=== PATIENT | female | born 1975 | race Caucasian/White ===

== ENCOUNTER 2024-03-04 14:32 | Inpatient (IN) | payer MEDICARE, OTHER ==
--- NOTE | 2024-03-04 15:10 | ED ---
General Adult HPI - General Chief complaint: Chest Pain Stated complaint: Chest pain, pain in L arm Time Seen by Provider: 03/04/24 14:55 Source: patient, RN notes reviewed, old records reviewed Mode of arrival: ambulatory Limitations: no limitations - History of Present Illness Initial comments: This is a 48-year-old female who presents to the emergency department with a past medical history significant for diabetes hypertension high cholesterol smok ing and a strong family history of heart disease. Patient states she has been having intermittent problems with her left shoulder but now its become constant and her left shoulder and arm hurt a lot particularly with movement or palpation. Patient states this morning she started having chest pressure and that continues now. Patient denies any shortness of breath or difficulty breathing. Patient [place] any abdominal pain patient has any nausea vomiting. Patient is any diaphoretic episode. Patient has any recent fever chills or cough. - Related Data Allergies Allergy/AdvReac Type Severity Reaction Status Date / Time codeine Allergy Rash/Hives Verified 03/04/24 14:43 nitrofurantoin Allergy Rash/Hives Verified 03/04/24 14:43 [From Macrobid] Penicillins Allergy Rash/Hives Verified 03/04/24 14:43 vancomycin Allergy Rash/Hives Verified 03/04/24 14:43 Review of Systems ROS Statement: Those systems with pertinent positive or pertinent negative responses have been documented in the HPI. ROS Other: All systems not noted in ROS Statement are negative. Past Medical History Past Medical History: Diabetes Mellitus, GERD/Reflux Additional Past Medical History / Comment(s): Unknown Autoimmune disease, chronic back pain, History of Any Multi-Drug Resistant Organisms: None Reported Past Surgical History: Cholecystectomy, Hysterectomy Past Psychological History: No Psychological Hx Reported Smoking Status: Current every day smoker Past Alcohol Use History: None Reported Past Drug Use History: None Reported General Exam - General Exam Comments Initial Comments: GENERAL: Patient is well-developed and well-nourished. Patient is nontoxic and well- hydrated and is in mild distress. ENT: Neck is soft and supple. No significant lymphadenopathy is noted. Oropharynx is clear. Moist mucous membranes. Neck has full range of motion without eliciting any pain. EYES: The sclera were anicteric and conjunctiva were pink and moist. Extraocular movements were intact and pupils were equal round and reactive to light. Eyelids were unremarkable. PULMONARY: Unlabored respirations. Good breath sounds bilaterally. No audible rales rhonchi or wheezing was noted. CARDIOVASCULAR: There is a regular rate and rhythm without any murmurs gallops or rubs. ABDOMEN: Soft and nontender with normal bowel sounds. SKIN: Skin is clear with no lesions or rashes and otherwise unremarkable. NEUROLOGIC: Patient is alert and oriented x3. Cranial nerves II through XII are grossly int act. Motor and sensory are also intact. Normal speech, volume and content. Symmetrical smile. MUSCULOSKELETAL: Normal extremities with adequate strength and full range of motion. LYMPHATICS: No significant lymphadenopathy is noted PSYCHIATRIC: Normal psychiatric evaluation. Limitations: no limitations Course Vital Signs 03/04/24 03/04/24 14:40 15:05 Temperature 98.5 F Pulse Rate 82 78 Respiratory 18 18 Rate Blood Pressure 148/83 170/101 O2 Sat by Pulse 96 98 Oximetry Medical Decision Making - Medical Decision Making EKG shows sinus rhythm at 78 bpm MS interval 175 QRS is 90 QT interval 366 QTc is 399. Patient's EKG shows no ST segment elevation or depression. Was pt. sent in by a medical professional or institution (, PA, SALES AND SERVICE TECHNICIAN, urgent care, hospital, or senior care...) When possible be specific @ -No Did you speak to anyone other than the patient for history (EMS, parent, family, police, friend...)? What history was obtained from this source @ -No Did you review nursing and triage notes (agree or disagree)? Why? @ -I reviewed and agree with nursing and triage notes Were old charts reviewed (outside hosp., previous admission, EMS record, old EKG, old radiological studies, urgent care reports/EKG's, senior care records)? Report findings @ -No old charts were reviewed Differential Diagnosis (chest pain, altered mental status, abdominal pain women, abdominal pain men, vaginal bleeding, weakness, fever, dyspnea, syncope, headache, dizziness, GI bleed, back pain, seizure, CVA, palpatations, mental health, musculoskeletal)? @ -Differential Chest Pain: Stable Angina, Unstable Angina, STEMI, NSTEMI Aortic Dissection, Pneumothorax, Musculoskeletal, Esophageal Spasm GERD, Cholecystitis, Pancreatitis, Zoster, this is not meant to be an all-inclusive list. EKG interpreted by me (3pts min.). @ -As above X-rays interpreted by me (1pt min.). @ -Chest x-ray shows no acute [place] CT interpreted by me (1pt min.). @ -None done U/S interpreted by me (1pt. min.). @ -None done What testing was considered but not performed or refused? (CT, X-rays, U/S, labs)? Why? @ -None What meds were considered but not given or refused? Why? @ -None Did you discuss the management of the patient with other professionals (iggy [place] i.eLatha Feliciano, PA, SALES AND SERVICE TECHNICIAN, lab, RT, psych nurse, social work therapist, expedition supervisor, teacher, ski patrol officer, caser shoe parts)? Give summary @ -I spoke with Dr. San he agreed to admit the patient admit the patient and consult to cardiology Was smoking cessation discussed for >3mins.? @ -No Was critical care preformed (if so, how long)? @ -No Were there social determinants of health that impacted care today? How? (Homelessness, low income, unemployed, alcoholism, drug addiction, transportation, low edu. Level, literacy, decrease access to med. care, alf, rehab)? @ -No Was there de-escalation of care discussed even if they declined (Discuss DNR or withdrawal of care, Hospice)? DNR status @ -No What co-morbidities impacted this encounter? (DM, HTN, Smoking, COPD, CAD, Cancer, CVA, ARF, Chemo, Hep., AIDS, mental health diagnosis, sleep apnea, morbid obesity)? @ -None Was patient admitted / discharged? Hospital course, mention meds given and route, prescriptions, significant lab abnormalities, going to OR and other pertinent info. @ -Patient was given Nitropaste and aspirin in the emergency department. Patient's lab work came back normal however she continued experience some chest discomfort so patient will be admitted. Patient also had a GI cocktail early because she thought she had some reflux Undiagnosed new problem with uncertain prognosis? @ -No Drug Therapy requiring intensive monitoring for toxicity (Heparin, Nitro, Insulin, Cardizem)? @ -No Were any procedures done? @ -No Diagnosis/symptom? @ -Chest pain Acute, or Chronic, or Acute on Chronic? @ -Acute Uncomplicated (without systemic symptoms) or Complicated (systemic symptoms)? @ -Complicated Side effects of treatment? @ -No Exacerbation, Progression, or Severe Exacerbation? @ -No Poses a threat to life or bodily function? How? (Chest pain, USA, CA, pneumonia, PE, COPD, DKA, ARF, appy, cholecystitis, CVA, Diverticulitis, Homicidal, Suicidal, threat to staff... and all critical care pts) @ -Yes this could lead to an CA and endorgan dysfunction - Lab Data Result diagrams: 03/04/24 15:04 03/04/24 15:04 Lab Results 03/04/24 03/04/24 03/04/24 Range/Units 15:04 15:04 15:04 WBC 13.4 H (3.8-10.6) k/uL RBC 5.55 H (3.80-5.40) m/uL Hgb 16.3 H (11.4-16.0) gm/dL Hct 50.5 H (34.0-46.0) % MCV 91.1 (80.0-100.0) fL MCH 29.4 (25.0-35.0) pg MCHC 32.2 (31.0-37.0) g/dL RDW 13.7 (11.5-15.5) % Plt Count 278 (150-450) k/uL MPV 9.2 Neutrophils % 62 % Lymphocytes % 29 % Monocytes % 4 % Eosinophils % 3 % Basophils % 1 % Neutrophils # 8.3 H (1.3-7.7) k/uL Lymphocytes # 3.9 (1.0-4.8) k/uL Monocytes # 0.5 (0-1.0) k/uL Eosinophils # 0.3 (0-0.7) k/uL Basophils # 0.2 (0-0.2) k/uL PT 10.1 (10.0-12.5) sec INR 0.9 (<1.2) APTT 24.5 (22.0-30.0) sec Sodium 136 L (137-145) mmol/L Potassium 4.2 (3.5-5.1) mmol/L Chloride 103 (98-107) mmol/L Carbon Dioxide 28 (22-30) mmol/L Anion Gap 5 mmol/L BUN 14 (7-17) mg/dL Creatinine 0.58 (0.52-1.04) mg/dL Est GFR (CKD-EPI)AfAm >90 (>60 ml/min/1.73 sqM) Est GFR (CKD-EPI)NonAf >90 (>60 ml/min/1.73 sqM) Glucose 152 H (74-99) mg/dL Calcium 9.5 (8.4-10.2) mg/dL Magnesium 2.0 (1.6-2.3) mg/dL Total Bilirubin 0.6 (0.2-1.3) mg/dL AST 33 (14-36) U/L ALT 25 (4-34) U/L Alkaline Phosphatase 160 H (38-126) U/L Troponin I (0.000-0.034) ng/mL Total Protein 7.1 (6.3-8.2) g/dL Albumin 4.5 (3.5-5.0) g/dL 03/04/24 Range/Units 15:04 WBC (3.8-10.6) k/uL RBC (3.80-5.40) m/uL Hgb (11.4-16.0) gm/dL Hct (34.0-46.0) % MCV (80.0-100.0) fL MCH (25.0-35.0) pg MCHC (31.0-37.0) g/dL RDW (11.5-15.5) % Plt Count (150-450) k/uL MPV Neutrophils % % Lymphocytes % % Monocytes % % Eosinophils % % Basophils % % Neutrophils # (1.3-7.7) k/uL Lymphocytes # (1.0-4.8) k/uL Monocytes # (0-1.0) k/uL Eosinophils # (0-0.7) k/uL Basophils # (0-0.2) k/uL PT (10.0-12.5) sec INR (<1.2) APTT (22.0-30.0) sec Sodium (137-145) mmol/L Potassium (3.5-5.1) mmol/L Chloride (98-107) mmol/L Carbon Dioxide (22-30) mmol/L Anion Gap mmol/L BUN (7-17) mg/dL Creatinine (0.52-1.04) mg/dL Est GFR (CKD-EPI)AfAm (>60 ml/min/1.73 sqM) Est GFR (CKD-EPI)NonAf (>60 ml/min/1.73 sqM) Glucose (74-99) mg/dL Calcium (8.4-10.2) mg/dL Magnesium (1.6-2.3) mg/dL Total Bilirubin (0.2-1.3) mg/dL AST (14-36) U/L ALT (4-34) U/L Alkaline Phosphatase (38-126) U/L Troponin I <0.012 (0.000-0.034) ng/mL Total Protein (6.3-8.2) g/dL Albumin (3.5-5.0) g/dL Disposition Clinical Impression: Chest pain Disposition: ADMITTED IP TO THIS HOSP Referrals: Nonstaff,Physician [Primary Care Provider] - 1-2 days Time of Disposition: 17:22
[2024-03-04] MEDS: MAG HYDROX/AL HYDROX/SIMETH 30 ML, HYOSCYAMINE ELIXIR 10 ML, LIDOCAINE VISCOUS 2% 10 ML PO STA (15:18)
[2024-03-04 15:21] LABS: Basophils # (A) 0.2 k/uL (0-0.2); Basophils % (A) 1 %; Eosinophils # (A) 0.3 k/uL (0-0.7); Eosinophils % (A) 3 %; HCT 50.5 % (34.0-46.0); HGB 16.3 gm/dL (11.4-16.0); Lymphocytes # (A) 3.9 k/uL (1.0-4.8); Lymphocytes % (A) 29 %; MCH 29.4 pg (25.0-35.0); MCHC 32.2 g/dL (31.0-37.0); MCV 91.1 fL (80.0-100.0); Mean Platelet Volume 9.2; Monocytes # (A) 0.5 k/uL (0-1.0); Monocytes % (A) 4 %; Neutrophils # (A) 8.3 k/uL (1.3-7.7); Neutrophils % (A) 62 %; Platelet Count 278 k/uL (150-450); RBC 5.55 m/uL (3.80-5.40); RDW 13.7 % (11.5-15.5); WBC 13.4 k/uL (3.8-10.6)
[2024-03-04 15:29] LABS: ALT 25 U/L (4-34); AST 33 U/L (14-36); African American GFR (CKD) >90 (>60 ml/min/1.73 sqM); Albumin 4.5 g/dL (3.5-5.0); Alkaline Phosphatase 160 U/L (38-126); Anion Gap 5 mmol/L; Blood Urea Nitrogen 14 mg/dL (7-17); Calcium 9.5 mg/dL (8.4-10.2); Carbon Dioxide 28 mmol/L (22-30); Chloride 103 mmol/L (98-107); Glucose 152 mg/dL (74-99); Non-African American GFR(CKD) >90 (>60 ml/min/1.73 sqM); Potassium 4.2 mmol/L (3.5-5.1); Sodium 136 mmol/L (137-145); Total Bilirubin 0.6 mg/dL (0.2-1.3); Total Protein 7.1 g/dL (6.3-8.2)
[2024-03-04 15:31] LABS: INR 0.9 (<1.2); Partial Thromboplastin Time 24.5 sec (22.0-30.0); Prothrombin Time 10.1 sec (10.0-12.5)
[2024-03-04] MEDS: KETOROLAC 15 MG/ML 1 ML VIAL IVP STA (17:09)
[2024-03-04] MEDS ORDERED: NITROGLYCERIN SL TABS 0.4 MG TAB SUBLINGUAL PRN (17:37)
[2024-03-04] MEDS: NITROGLYCERIN OINT 1 INCH/GM PACKET TOPICAL SCH (19:02)
[2024-03-04] MEDS: metFORMIN 500 MG TAB PO SCH (21:33)
[2024-03-04] MEDS: HYDROcodone/APAP 5-325MG 1 EACH TAB PO PRN (21:33)
[2024-03-04] MEDS: ATORVASTATIN 10 MG TAB PO SCH (21:34)
[2024-03-04] MEDS: PANTOPRAZOLE 40 MG TABLET PO SCH (21:34)
[2024-03-05] MEDS ORDERED: MORPHINE SULFATE 2 MG/ML SYRINGE IVP PRN (00:16)
[2024-03-05] MEDS: MORPHINE SULFATE 2 MG/ML SYRINGE IVP ONE (00:36)
[2024-03-05] MEDS: PANTOPRAZOLE 40 MG/10 ML VIAL IVP SCH (05:25)
[2024-03-05] MEDS: MORPHINE SULFATE 2 MG/ML SYRINGE IVP STA (05:26)
[2024-03-05 05:36] VITALS: BP 129/76; PULSE 68; RESP 24; TEMP 97.6
[2024-03-05 06:30] LABS: Glucose,Whole Blood 125 mg/dL (70-110)
--- NOTE | 2024-03-05 07:44 | XR ---
EXAMINATION TYPE: XR chest 2V DATE OF EXAM: 03/04/2024 COMPARISON: NONE HISTORY: Chest pain TECHNIQUE: Frontal and lateral views of the chest are obtained. FINDINGS: Increased density right medial lung base could reflect developing infiltrate. No evidence for pneumothorax. No pleural effusion. The cardiac silhouette size is within normal limits. The osseous structures are grossly intact. IMPRESSION: 1. Increased density right medial lung base could reflect developing infiltrate.
--- NOTE | 2024-03-05 07:52 | XR ---
EXAMINATION TYPE: XR shoulder complete LT DATE OF EXAM: 03/05/2024 CLINICAL HISTORY: pain COMPARISON: NONE TECHNIQUE: Three views of the left shoulder are obtained. FINDINGS: There is no acute fracture/dislocation evident. The acromioclavicular and glenohumeral clarice int spaces appear within normal limits. The visualized ribs are intact and unremarkable. IMPRESSION: 1. There is no acute fracture or dislocation. ICD 10 NO FRACTURE, INITIAL EVALUATION
[2024-03-05] MEDS ORDERED: DOBUTamine DRIP for NUC MED 500 MG in DEXTROSE/WATER 1 250ML.BAG IV PRN (08:11)
[2024-03-05] MEDS: LOSARTAN 50 MG TAB PO SCH (09:27)
[2024-03-05] MEDS: ASPIRIN 325 MG TAB PO SCH (09:27)
[2024-03-05] MEDS: CHOLECALCIFEROL 125 MCG (5000 IU) TABLET PO SCH (09:27)
[2024-03-05 10:37] LABS: Chol/HDL Ratio 4.25 Ratio; LDL Cholesterol,Calculated 46.8 mg/dL (0.0-131.0)
--- NOTE | 2024-03-05 10:46 | P.CRDCN ---
History of Present Illness Consult date: 03/05/24 Consult reason: chest pain History of present illness: This is a 48-year-old female with no previous cardiac history, does not follow with a deposit clerk and lives in [place]. She has a past medical history of diabetes mellitus type 2, hyperlipidemia, gastroesophageal reflux disease. We have been asked to evaluate the patient for chest pain. Patient complains of severe left shoulder pain and left upper anterior chest wall pain that has been going on for couple weeks on and off initially and now it has been constant for the past 2 days. She has been given Nitropaste which did not help. She also complains of epigastric tenderness that she has had for many years. Patient presented with blood pressure 186/97, heart rates have been controlled in the 70s. Patient is status post 2 doses of IV morphine, Protonix, Toradol and GI cocktail. She is seen today in the emergency center waiting for bed on the observation unit. EKG: Sinus rhythm with no acute ST-T wave changes x 2 Chest x-ray: Increased density in the right middle lung base could reflect developing infiltrate Left shoulder x-ray: No acute fracture or dislocation. Laboratory studies: WBC 13.4, hemoglobin 16.3. Sodium 136, potassium 4.2, creatinine 0.58. Troponin negative x 3. Triglycerides 263, cholesterol 130, LDL 46, HDL 30. Home cardiac medications: Atorvastatin 10 mg at bedtime, metformin 1000 mg twice daily. Review Of Systems: At the time of my exam: CONSTITUTIONAL: Denies fever or chills. HEENT: Denies blurred vision, vision changes, or eye pain. Denies hemoptysis CARDIOVASCULAR: Denies chest pain. Denies orthopnea. Denies PND. Denies palpitations RESPIRATORY: Denies shortness of breath. GASTROINTESTINAL: Denies abdominal pain. Denies nausea or vomiting. HEMATOLOGIC: Denies bleeding disorders. GENITOURINARY: Denies any blood in urine. SKIN: Denies puritis. Denies rash. Physical examination: Gen: This is a 48-year-old female in significant pain to the left shoulder. VS: reviewed, 129/76, heart rate 68, pulse ox 94% on room air, afebrile. HEENT: Head is atraumatic, normocephalic. Pupils equal, round. Sclerae is anicteric. NECK: Supple. No JVD. LUNGS: Clear to auscultation. No wheezes or rhonchi. No intercostal retractions. HEART: Regular rate and rhythm. No murmur. EXTREMITIES: No pedal edema. No calf tenderness. NEUROLOGICAL: Patient is awake, alert and oriented x3. Assessment: Left shoulder pain Left upper anterior chest wall pain, acute coronary syndrome ruled out with negative troponins and normal EKG Diabetes mellitus type 2 Hyperlipidemia Gastroesophageal reflux disease Plan: Resume patient's home cardiac medications with the following changes Increase atorvastatin to 20 mg at bedtime Add losartan 50 mg daily Discontinue Nitropaste Obtain dobutamine stress test Obtain 2-D echocardiogram and Doppler study to assess cardiac structure and function If stress test and echocardiogram are unremarkable, patient is cleared for discharge home. Thank you kindly for this consultation. Nurse practitioner note has been reviewed, I agree with documented findings and plan of care. Patient was seen and examined. Past Medical History Past Medical History: Diabetes Mellitus, GERD/Reflux Additional Past Medical History / Comment(s): Unknown Autoimmune disease, chronic back pain, History of Any Multi-Drug Resistant Organisms: None Reported Past Surgical History: Cholecystectomy, Hysterectomy Past Psychological History: No Psychological Hx Reported Smoking Status: Current every day smoker Past Alcohol Use History: None Reported Past Drug Use History: None Reported Medications and Allergies Home Medications Medication Instructions Recorded Confirmed Type Atorvastatin [Lipitor] 10 mg PO HS 03/04/24 03/04/24 History Cholecalciferol (Vitamin D3) 125 mcg PO DAILY 03/04/24 03/04/24 History [Vitamin D3 (125 MCG = 5,000 IU)] Omeprazole 20 mg PO BID 03/04/24 03/04/24 History metFORMIN HCL 1,000 mg PO BID 03/04/24 03/04/24 History Allergies Allergy/AdvReac Type Severity Reaction Status Date / Time codeine Allergy Rash/Hives Verified 03/04/24 17:17 nitrofurantoin Allergy Rash/Hives Verified 03/04/24 17:17 [From Macrobid] Penicillins Allergy Rash/Hives Verified 03/04/24 17:17 vancomycin Allergy Rash/Hives Verified 03/04/24 17:17 Physical Exam Vitals: Vital Signs Temp Pulse Pulse Resp BP BP Pulse Ox 03/05/24 05:35 97.6 F 68 24 129/76 94 L 03/05/24 00:28 98.0 F 67 20 152/81 95 03/04/24 21:37 67 20 167/84 98 03/04/24 19:05 98.2 F 71 17 173/100 96 03/04/24 17:11 70 18 186/97 95 03/04/24 15:05 78 18 170/101 98 03/04/24 14:40 98.5 F 82 18 148/83 96 Intake and Output 03/04/24 03/05/24 03/05/24 22:59 06:59 14:59 Other: # Voids 3 # Bowel Movements 0 Results 03/04/24 15:04 03/04/24 15:04 Cardiac Enzymes 03/04/24 03/04/24 03/04/24 Range/Units 15:04 15:04 17:57 AST 33 (14-36) U/L Troponin I <0.012 <0.012 (0.000-0.034) ng/mL 03/04/24 Range/Units 20:34 AST (14-36) U/L Troponin I <0.012 (0.000-0.034) ng/mL Coagulation 03/04/24 Range/Units 15:04 PT 10.1 (10.0-12.5) sec APTT 24.5 (22.0-30.0) sec CBC 03/04/24 Range/Units 15:04 WBC 13.4 H (3.8-10.6) k/uL RBC 5.55 H (3.80-5.40) m/uL Hgb 16.3 H (11.4-16.0) gm/dL Hct 50.5 H (34.0-46.0) % Plt Count 278 (150-450) k/uL Comprehensive Metabolic Panel 03/04/24 Range/Units 15:04 Sodium 136 L (137-145) mmol/L Potassium 4.2 (3.5-5.1) mmol/L Chloride 103 (98-107) mmol/L Carbon Dioxide 28 (22-30) mmol/L BUN 14 (7-17) mg/dL Creatinine 0.58 (0.52-1.04) mg/dL Glucose 152 H (74-99) mg/dL Calcium 9.5 (8.4-10.2) mg/dL AST 33 (14-36) U/L ALT 25 (4-34) U/L Alkaline Phosphatase 160 H (38-126) U/L Total Protein 7.1 (6.3-8.2) g/dL Albumin 4.5 (3.5-5.0) g/dL Current Medications Generic Name Dose Route Start Last Admin Trade Name Freq PRN Reason Stop Dose Admin Hydrocodone Bitart/Acetaminophen 1 each 03/04/24 22:00 03/05/24 02:55 Hydrocodone/Apap 5-325mg 1 Each Tab PO 1 each Q6HR PRN Administration Pain Aspirin 325 mg 03/05/24 09:00 Aspirin 325 Mg Tab PO DAILY TERESA Atorvastatin Calcium 10 mg 03/04/24 22:00 03/04/24 21:34 Atorvastatin 10 Mg Tab PO 10 mg HS TERESA Administration Cholecalciferol 125 mcg 03/05/24 09:00 Cholecalciferol 125 Mcg (5000 Iu) Tablet PO DAILY [facility] Metformin HCl 1,000 mg 03/04/24 22:00 03/04/24 21:33 Metformin 500 Mg Tab PO 1,000 mg BID-W/MEALS TERESA Administration Nitroglycerin 0.4 mg 03/04/24 17:37 Nitroglycerin Sl Tabs 0.4 Mg Tab SUBLINGUAL Q5M PRN Chest Pain Nitroglycerin 1 inch 03/04/24 18:00 03/05/24 05:32 Nitroglycerin Oint 1 Inch/Gm Packet TOPICAL 1 inch Q6HR TERESA Administration Pantoprazole Sodium 40 mg 03/05/24 09:00 03/05/24 05:25 Pantoprazole 40 Mg/10 Ml Vial IVP 40 mg BID ETRESA Administration Intake and Output 03/04/24 03/05/24 03/05/24 22:59 06:59 14:59 Other: # Voids 3 # Bowel Movements 0 03/04/24 15:04 03/04/24 15:04
[2024-03-05] MEDS: MORPHINE SULFATE 2 MG/ML SYRINGE IVP PRN (11:09)
[2024-03-05 11:11] LABS: Basophils # (A) 0.1 k/uL (0-0.2); Basophils % (A) 1 %; Eosinophils # (A) 0.3 k/uL (0-0.7); Eosinophils % (A) 2 %; HCT 48.8 % (34.0-46.0); HGB 15.1 gm/dL (11.4-16.0); Lymphocytes % (A) 36 %; MCH 29.1 pg (25.0-35.0); MCV 93.8 fL (80.0-100.0); Mean Platelet Volume 10.3; Monocytes # (A) 0.6 k/uL (0-1.0); Monocytes % (A) 4 %; Neutrophils # (A) 7.6 k/uL (1.3-7.7); Neutrophils % (A) 55 %; Platelet Count 269 k/uL (150-450); RDW 13.8 % (11.5-15.5); WBC 13.7 k/uL (3.8-10.6)
[2024-03-05 11:12] LABS: African American GFR (CKD) >90 (>60 ml/min/1.73 sqM); Anion Gap 4 mmol/L; Blood Urea Nitrogen 16 mg/dL (7-17); Calcium 9.2 mg/dL (8.4-10.2); Carbon Dioxide 26 mmol/L (22-30); Chloride 106 mmol/L (98-107); Glucose 124 mg/dL (74-99); Non-African American GFR(CKD) >90 (>60 ml/min/1.73 sqM); Potassium 4.4 mmol/L (3.5-5.1); Sodium 136 mmol/L (137-145)
[2024-03-05] MEDS: KETOROLAC 15 MG/ML 1 ML VIAL IVP PRN (12:16)
--- NOTE | 2024-03-05 13:07 | CA ---
Transthoracic Echo Report Name: Elizabeth Noonan Age: 48 Gender: F : 1975 Exam Date: 03/05/2024 10:05 Exam Location: [facility] Ht (in): 66 Wt (lb): 250 Ordering Physician: Ashley Valencia Attending/Referring Phys: Senior Quality Engineer Radha Robert RDCS Procedure CPT: Indications: LVF Cardiac Hx: Technical Quality: Fair Contrast 1: Total Dose (mL): Contrast 2: Total Dose (mL): MEASUREMENTS (Male / Female) Normal Values 2D ECHO LV Diastolic Diameter PLAX 4.6 cm 4.2 - 5.9 / 3.9 - 5.3 cm LV Systolic Diameter PLAX 2.4 cm IVS Diastolic Thickness 1.7 cm 0.6 - 1.0 / 0.6 - 0.9 cm LVPW Diastolic Thickness 1.4 cm 0.6 - 1.0 / 0.6 - 0.9 cm LV Relative Wall Thickness 0.7 LA Volume 47.1 cm??? 18 - 58 / 22 - 52 cm??? LA Volume Index 20.0 cm???/m??? 16 - 28 cm???/m??? M-MODE Aortic Root Diameter MM 2.8 cm LA Systolic Diameter MM 4.5 cm LA Ao Ratio MM 1.6 DOPPLER AV Peak Velocity 131.1 cm/s AV Peak Gradient 6.9 mmHg AV Mean Gradient 3.7 mmHg AV Velocity Time Integral 30.2 cm LVOT Peak Velocity 107.0 cm/s LVOT Peak Gradient 4.6 mmHg LVOT Velocity Time Integral 25.7 cm Mitral E Point Velocity 85.7 cm/s Mitral A Point Velocity 108.4 cm/s Mitral E to A Ratio 0.8 MV Deceleration Time 301.1 ms TR Peak Velocity 234.8 cm/s TR Peak Gradient 22.0 mmHg FINDINGS Left Ventricle Moderately increased left ventricular wall thickness. Left ventricular cavity size normal. Normal left ventricular systolic function with no obvious regional wall motion abnormalities. Left ventricular ejection fraction is estimated at 55-60 %. Grade 1 diastolic dysfunction. Right Ventricle Normal right ventricular size and function. Right ventricular systolic pressure within normal limits. Right Atrium Normal right atrial size. Left Atrium Normal left atrial size. Mitral Valve Structurally normal mitral valve. Mild mitral annular calcification. No mitral stenosis. Trace mitral regurgitation. Aortic Valve Trileaflet aortic valve. No aortic valve stenosis or regurgitation. Tricuspid Valve Structurally normal tricuspid valve. Mild tricuspid regurgitation. Pulmonic Valve Structurally normal pulmonic valve. Pericardium No pericardial effusion. Aorta Normal size aortic root and proximal ascending aorta. CONCLUSIONS Preserved LV systolic function Previewed by: Dr. Karel Martinez MD (Electronically Signed) Final Date: 05 March 2024 13:06
--- NOTE | 2024-03-05 13:55 | P.HPIM ---
History of Present Illness H&P Date: 03/05/24 Chief Complaint: Left shoulder pain Patient is a 48-year-old female with a known history of diabetes type 2 [id number], GERD, history of autoimmune disease and chronic low back pain and currently everyday smoker presents to ER with complaints of left shoulder pain. Patient states that she has been having left shoulder pain for the past 1 week and worsened in the last couple days. Pain has been constant and particularly gets worse with movement and on palpation. Patient also started having chest pressure yesterday morning. Denies any complaints of difficulty in breathing. No complaints of nausea or vomiting or diaphoresis. Denies any recent strenuous work. Patient states that she did have right shoulder pain prior to developing left shoulder pain. Right shoulder pain is completely resolved now. Denies any fever or chills. No cough or sputum production. No nausea vomiting abdominal pain or diarrhea. EKG showed sinus rhythm. Chest x-ray showed increased density in the right medial lung base could reflect developing infiltrate. Left shoulder x-ray showed no acute fracture or dislocation. Laboratory data showed WBC 13.4 hemoglobin 16.3 and platelets 278 Sodium 136 potassium 4.2 chloride 103 bicarb is 28 BUN 14 and creatinine 0.58 and blood sugar 152 AST 33 ALT 25 and alk phos 160, troponin x 3 negative Triglycerides 263 cholesterol 130 and LDL 46. Review of Systems Constitutional: Patient denies any fever or chills . No generalized weakness or weight loss. Abdomen: Patient denied nausea vomiting and diarrhea and abdominal pain. Cardiovascular: Patient denies any chest pain or short of breath no palpi tations. Respiratory: patient denied any cough or sputum production. No shortness of breath Neurologic: Patient denied any numbness or tingling. no headache. Musculoskeletal: Patient denies any complaints of joint swelling or deformity. Left shoulder pain. Skin: Negative Psychiatric: Negative Endocrine: No heat or cold intolerance. No recent weight gain. Genitourinary: No dysuria or hematuria. All other 14 point ROS negative except the above Past Medical History Past Medical History: Diabetes Mellitus, GERD/Reflux Additional Past Medical History / Comment(s): Unknown Autoimmune disease, chronic back pain, History of Any Multi-Drug Resistant Organisms: None Reported Past Surgical History: Cholecystectomy, Hysterectomy Past Psychological History: No Psychological Hx Reported Smoking Status: Current every day smoker Past Alcohol Use History: None Reported Past Drug Use History: None Reported Medications and Allergies Home Medications Medication Instructions Recorded Confirmed Type Atorvastatin [Lipitor] 10 mg PO HS 03/04/24 03/04/24 History Cholecalciferol (Vitamin D3) 125 mcg PO DAILY 03/04/24 03/04/24 History [Vitamin D3 (125 MCG = 5,000 IU)] Omeprazole 20 mg PO BID 03/04/24 03/04/24 History metFORMIN HCL 1,000 mg PO BID 03/04/24 03/04/24 History Allergies Allergy/AdvReac Type Severity Reaction Status Date / Time codeine Allergy Rash/Hives Verified 03/04/24 17:17 nitrofurantoin Allergy Rash/Hives Verified 03/04/24 17:17 [From Macrobid] Penicillins Allergy Rash/Hives Verified 03/04/24 17:17 vancomycin Allergy Rash/Hives Verified 03/04/24 17:17 Physical Exam Vitals: Vital Signs Temp Pulse Pulse Resp BP BP Pulse Ox 03/05/24 05:35 97.6 F 68 24 129/76 94 L 03/05/24 00:28 98.0 F 67 20 152/81 95 03/04/24 21:37 67 20 167/84 98 03/04/24 19:05 98.2 F 71 17 173/100 96 03/04/24 17:11 70 18 186/97 95 03/04/24 15:05 78 18 170/101 98 03/04/24 14:40 98.5 F 82 18 148/83 96 Intake and Output 03/04/24 03/05/24 03/05/24 22:59 06:59 14:59 Other: # Voids 3 # Bowel Movements 0 PHYSICAL EXAMINATION: Patient is lying in the bed comfortably, no acute distress, awake alert and oriented.. HEENT: Normocephalic. Neck is supple. Pupils reactive. Nostrils clear. Oral cavity is moist. Neck reveals no JVD, carotid bruits, or thyromegaly. CHEST EXAMINATION: Trachea is central. Symmetrical expansion. Lung ortiz clear to auscultation and percussion. CARDIAC: Normal S1, S2 with no gallops. No murmurs ABDOMEN: Soft. Bowel sounds normal. No organomegaly. No abdominal bruits. Extremities: reveal no edema. No clubbing or cyanosis Neurologically awake, alert, oriented x3 with well-coordinated movements. No focal deficits noted Skin: No rash or skin lesions. Psychiatric: Coperative. Nonsuicidal, anxious. Musculoskeletal: No joint swelling or deformity. Tenderness over the anterior shoulder joint at the deltoid insertion. No swelling. Results CBC & Chem 7: 03/05/24 07:00 03/05/24 07:00 Labs: Abnormal Lab Results - Last 24 Hours (Table) 03/04/24 03/04/24 03/05/24 Range/Units 15:04 15:04 06:28 WBC 13.4 H (3.8-10.6) k/uL RBC 5.55 H (3.80-5.40) m/uL Hgb 16.3 H (11.4-16.0) gm/dL Hct 50.5 H (34.0-46.0) % Neutrophils # 8.3 H (1.3-7.7) k/uL Sodium 136 L (137-145) mmol/L Glucose 152 H (74-99) mg/dL POC Glucose (mg/dL) 125 H (70-110) mg/dL Alkaline Phosphatase 160 H (38-126) U/L Triglycerides (0.00-149.00) mg/dL VLDL Cholesterol, Calc (5.00-40.00) mg/dL HDL Cholesterol (40.00-60.00) mg/dL 03/05/24 Range/Units 07:00 WBC (3.8-10.6) k/uL RBC (3.80-5.40) m/uL Hgb (11.4-16.0) gm/dL Hct (34.0-46.0) % Neutrophils # (1.3-7.7) k/uL Sodium (137-145) mmol/L Glucose (74-99) mg/dL POC Glucose (mg/dL) (70-110) mg/dL Alkaline Phosphatase (38-126) U/L Triglycerides 263.00 H (0.00-149.00) mg/dL VLDL Cholesterol, Calc 52.60 H (5.00-40.00) mg/dL HDL Cholesterol 30.60 L (40.00-60.00) mg/dL Thrombosis Risk Factor Assmnt - DVT/VTE Prophylaxis DVT/VTE Prophylaxis: Pharmacologic Prophylaxis ordered Assessment and Plan Assessment: Left shoulder pain possible rotator cuff tendinopathy. Rule out ACS. Leukocytosis. Rule out infection. Uncontrolled blood pressure/hypertension Hyperglycemia with uncontrolled diabetes type 2 [id number] Hypertriglyceridemia 263 GERD Morbid obesity with BMI 40.4 DVT prophylaxis with heparin subcu Plan: Patient will be continued on pain management with Toradol and morphine as needed. Twelve-lead EKG and troponin x 3 negative. Nitropaste has been discontinued. Patient was started on losartan due to uncontrolled blood pressure. Patient was seen by cardiology and recommends dopamine stress test. Continue with insulin sliding scale and follow-up A1c level. Follow-up procalcitonin level and consider antibiotics as needed. Follow-up CBC due to leukocytosis. Time with Patient: Greater than 30
[2024-03-05] MEDS ORDERED: HEPARIN SODIUM,PORCINE 5,000 UNIT/ML 1 ML VIAL SQ SCH (16:00)
[2024-03-05] MEDS ORDERED: ATORVASTATIN 20 MG TAB PO SCH (21:00)
== END 2024-03-05 13:10 | disposition left against medical advice (07) | DRG 558 ==
LOC: EC 14:32 → 6NMEDSUR 17:38
PROVIDERS: ADMIT Internal Medicine; ATTEND Internal Medicine
DX: M67.814 Other specified disorders of tendon, left shoulder (principal); Z68.41 Body mass index [BMI] 40.0-44.9, adult; D72.829 Elevated white blood cell count, unspecified; E66.01 Morbid (severe) obesity due to excess calories; E78.00 Pure hypercholesterolemia, unspecified; E78.1 Pure hyperglyceridemia; I10 Essential (primary) hypertension; F17.200 Nicotine dependence, unspecified, uncomplicated; E11.65 Type 2 diabetes mellitus with hyperglycemia; Z79.84 Long term (current) use of oral hypoglycemic drugs; K21.9 Gastro-esophageal reflux disease without esophagitis; Z79.899 Other long term (current) drug therapy; E78.5 Hyperlipidemia, unspecified; M54.50 Low back pain, unspecified; Z88.1 Allergy status to other antibiotic agents; Z88.5 Allergy status to narcotic agent; Z88.0 Allergy status to penicillin; G89.29 Other chronic pain; Z53.29 Procedure and treatment not carried out because of patient's decision for other reasons
CPT/HCPCS: 36415; 71046; 80048; 80053; 80061; 83735; 84484; 85025; 85610; 85730; 93005; 93306; 96374; 96375; 96376; 99285